=== PATIENT | female | born 1995 | race Caucasian/White ===

== ENCOUNTER → 2018-09-18 | Outpatient (CLI) | payer BC ==
[2018-09-18 16:19] LABS: Basophils % (A) 1 %; Eosinophils # (A) 0.4 k/uL (0-0.7); Eosinophils % (A) 6 %; HCT 46.9 % (34.0-46.0); HGB 15.7 gm/dL (11.4-16.0); Lymphocytes % (A) 25 %; MCH 29.7 pg (25.0-35.0); MCHC 33.6 g/dL (31.0-37.0); MCV 88.5 fL (80.0-100.0); Mean Platelet Volume 6.7; Monocytes # (A) 0.4 k/uL (0-1.0); Monocytes % (A) 5 %; Neutrophils # (A) 4.9 k/uL (1.3-7.7); Neutrophils % (A) 61 %; Platelet Count 357 k/uL (150-450); RDW 12.7 % (11.5-15.5); WBC 7.9 k/uL (3.8-10.6)
[2018-09-18 23:06] LABS: Albumin 4.9 g/dL (3.80-4.90); Albumin/Globulin Ratio 1.96 (1.60-3.17); Anion Gap 8.1 mmol/L (4.00-12.00); Calcium 9.8 mg/dL (8.7-10.3); Carbon Dioxide 24.9 mmol/L (21.6-31.8); Globulin 2.5 g/dL (1.6-3.3); Potassium 3.9 mmol/L (3.5-5.5); Total Bilirubin 0.4 mg/dL (0.3-1.2); Total Protein 7.4 g/dL (6.2-8.2)
[2018-09-18 23:12] LABS: T4, Free (Free Thyroxine) 1.2 ng/dL (0.80-1.80)
== END | disposition home or self-care (01) ==
LOC: LABWHC1 15:56
PROVIDERS: ATTEND Family Medicine
DX: F33.1 Major depressive disorder, recurrent, moderate (principal); F98.8 Other specified behavioral and emotional disorders with onset usually occurring in childhood and adolescence
CPT/HCPCS: 36415; 80053; 84439; 84443; 85025

== ENCOUNTER → 2022-07-21 | Outpatient (CLI) | payer OTHER ==
[2022-07-21 18:56] LABS: Basophils # (A) 0.07 X 10*3/uL (0.00-0.10); Basophils % (A) 0.7 %; Eosinophils # (A) 0.43 X 10*3/uL (0.04-0.35); Eosinophils % (A) 4.6 %; HCT 41.7 % (37.2-46.3); HGB 13.9 g/dL (12.0-15.0); Immature Grans, Automated 0.2 %; Lymphocytes # (A) 2.07 X 10*3/uL (0.90-5.00); Lymphocytes % (A) 22.1 %; MCHC 33.3 g/dL (32.0-37.0); MCV 87.1 fL (80.0-97.0); Mean Platelet Volume 10.2 fL (9.5-12.2); Monocytes # (A) 0.57 X 10*3/uL (0.20-1.00); Monocytes % (A) 6.1 %; NRBC Per 100 WBC 0 /100 WBCS (0.0-0.0); Neutrophils # (A) 6.19 X 10*3/uL (1.80-7.70); Neutrophils % (A) 66.3 %; Platelet Count 407 X 10*3/uL (140-440); RBC 4.79 X 10*6/uL (4.10-5.20); RDW 13.4 % (11.5-14.5); WBC 9.35 X 10*3/uL (4.50-10.00)
[2022-07-21 19:12] LABS: ALT 19 U/L (8-44); AST 20 U/L (13-35); African American GFR (CKD) 145.7 (60.0-200.0); Albumin 4.5 g/dL (3.8-4.9); Albumin/Globulin Ratio 2.14 (1.60-3.17); Alkaline Phosphatase 68 U/L (41-126); BUN/Creat Ratio 14.36 Ratio (12.00-20.00); Blood Urea Nitrogen 8.8 mg/dL (9.0-27.0); Calcium 9.2 mg/dL (8.7-10.3); Carbon Dioxide 23.3 mmol/L (20.0-27.5); Chloride 106 mmol/L (96-109); Chol/HDL Ratio 2.54 Ratio; Globulin 2.1 g/dL (1.6-3.3); Glucose 86 mg/dL (70-110); LDL Cholesterol,Calculated 79.5 mg/dL (0.0-131.0); Non-African American GFR(CKD) 125.7 (60.0-200.0); Potassium 4.2 mmol/L (3.5-5.5); Sodium 141 mmol/L (135-145); Total Bilirubin <0.15 mg/dL (0.30-1.20); Total Protein 6.5 g/dL (6.2-8.2); VLDL Calculation 10.78 mg/dL (5.00-40.00)
== END | disposition home or self-care (01) ==
LOC: LABWHC1 11:29
PROVIDERS: ATTEND Family Medicine
DX: Z00.00 Encounter for general adult medical examination without abnormal findings (principal); Z13.220 Encounter for screening for lipoid disorders; Z13.29 Encounter for screening for other suspected endocrine disorder; Z11.59 Encounter for screening for other viral diseases; F98.8 Other specified behavioral and emotional disorders with onset usually occurring in childhood and adolescence; F32.0 Major depressive disorder, single episode, mild; Z79.899 Other long term (current) drug therapy
CPT/HCPCS: 36415; 80053; 80061; 84443; 85025; 86803

== ENCOUNTER 2023-01-17 01:49 | Emergency (ER) | payer OTHER ==
[2023-01-17 02:39] LABS: Appearance,Urine Cloudy (Clear); Bilirubin,Urine Negative (Negative); Blood,Urine Large (Negative); Budding Yeast,Urine Many /hpf; Color,Urine Yellow; Glucose,Urine (UA) Negative (Negative); Ketones,Urine 1+ (Negative); Leukocyte Esterase,Urine Trace (Negative); Mucus,Urine Few /hpf; Nitrite,Urine Negative (Negative); PH, Urine 7.5 (5.0-8.0); Protein,Urine 1+ (Negative); RBC,Urine >182 /hpf (0-5); Specific Gravity,Urine 1.021 (1.001-1.035); Squamous Epithelial Cell,Urine 4 /hpf (0-4); Urobilinogen,Urine <2.0 mg/dL (<2.0); WBC,Urine 27 /hpf (0-5)
--- NOTE | 2023-01-17 02:41 | ED ---
Female Urogenital HPI <Leonid Garber - Last Filed: 01/17/23 06:14> - General Source: patient Mode of arrival: ambulatory Limitations: no limitations <Remigio Smalls - Last Filed: 01/19/23 03:38> - General Chief complaint: Urogenital Stated complaint: KIDNEY PAIN Time Seen by Provider: 01/17/23 02:12 - History of Present Illness Initial comments: Patient is a 27-year-old female presenting with chief complaint of dysuria. Symptoms started yesterday. Patient is now developing right-sided flank pain. Patient is currently on her menstrual cycle. No fever, chills, nausea, vomiting, vaginal discharge, hematuria. (Remigio Smalls) - Related Data Home Medications Medication Instructions Recorded Confirmed Dextroamphetamine/Amphetamine 1 cap PO DAILY 02/29/16 04/01/16 [Dextroamp-Amphet ER 30 mg Cap] Etonogestrel [Nexplanon ( 68 mg SQ [id number] 02/29/16 04/01/16 control implant)] Norethindrone Acetate 10 mg PO DAILY 02/29/16 04/01/16 Previous Rx's Medication Instructions Recorded Ketorolac [Toradol] 10 mg PO TID #30 tab 01/17/23 Ondansetron Odt [Zofran Odt] 4 mg PO Q8HR PRN #20 tab 01/17/23 Tamsulosin [Flomax] 0.4 mg PO DAILY #30 cap 01/17/23 Allergies Allergy/AdvReac Type Severity Reaction Status Date / Time No Known Allergies Allergy Verified 01/17/23 02:03 Review of Systems ROS Other: All systems not noted in ROS Statement are negative. <Leonid Garber - Last Filed: 01/17/23 06:14> ROS Other: All systems not noted in ROS Statement are negative. <Remigio Smalls - Last Filed: 01/19/23 03:38> ROS Statement: Those systems with pertinent positive or pertinent negative responses have been documented in the HPI. Past Medical History Additional Past Medical History / Comment(s): PCOS, major depression, recurrent, borderline personality disorder History of Any Multi-Drug Resistant Organisms: None Reported Past Surgical History: Ear Surgery, Tonsillectomy Past Psychological History: ADD/ADHD, Anxiety, Depression Smoking Status: Never smoker Past Alcohol Use History: Occasional Past Drug Use History: None Reported <Remigio Smalls - Last Filed: 01/19/23 03:38> General Exam Limitations: no limitations General appearance: alert, in no apparent distress Head exam: Present: atraumatic, normocephalic, normal inspection Eye exam: Present: normal appearance, EOMI. Absent: scleral icterus, periorbital swelling Neck exam: Present: normal inspection, full ROM Respiratory exam: Present: normal lung sounds bilaterally. Absent: respiratory distress, wheezes, rales, rhonchi, stridor Cardiovascular Exam: Present: regular rate, normal rhythm, normal heart sounds. Absent: systolic murmur, diastolic murmur, rubs, gallop, clicks GI/Abdominal exam: Present: soft, tenderness. Absent: distended, guarding, rebound, rigid Back exam: Present: CVA tenderness (R) Neurological exam: Present: alert, oriented X3, CN II-XII intact Psychiatric exam: Present: normal affect, normal mood Skin exam: Present: warm, dry, intact, normal color. Absent: rash <SlimDanyeljose - Last Filed: 01/19/23 03:38> Course Vital Signs 01/17/23 01/17/23 01/17/23 02:00 04:47 06:27 Temperature 97.8 F 98.5 F Pulse Rate 85 82 76 Respiratory 18 16 16 Rate Blood Pressure 137/95 119/67 O2 Sat by Pulse 100 99 98 Oximetry Medical Decision Making <Remigio Smalls - Last Filed: 01/19/23 03:38> - Medical Decision Making Was pt. sent in by a medical professional or institution (, PA, BOX COVERING MACHINE OPERATOR, urgent care, hospital, or fci...) When possible be specific @ -No Did you speak to anyone other than the patient for history (EMS, parent, family, police, friend...)? What history was obtained from this source @ -No Did you review nursing and triage notes (agree or disagree)? Why? @ -I reviewed and agree with nursing and triage notes Were old charts reviewed (outside hosp., previous admission, EMS record, old EKG, old radiological studies, urgent care reports/EKG's, fci records)? Report findings @ -No old charts were reviewed Differential Diagnosis (chest pain, altered mental status, abdominal pain women, abdominal pain men, vaginal bleeding, weakness, fever, dyspnea, syncope, headache, dizziness, GI bleed, back pain, seizure, CVA, palpatations, mental health, musculoskeletal)? @ - [facility] Differential Back Pain: Strain, zoster, cauda equina syndrome, epidural abscess, vertebral osteomyelitis, discitis, fracture, subluxation, disc herniation, DJD, spinal stenosis, dissection, AAA, pancreatitis, peptic ulcer disease, pyelonephritis, kidney stone this is not meant to be an all-inclusive list. EKG interpreted by me (3pts min.). @ -As above X-rays interpreted by me (1pt min.). @ -None done CT interpreted by me (1pt min.). @ -CT shows right-sided obstructive uropathy due to a 3 mm calculus at the right UVJ U/S interpreted by me (1pt. min.). @ -None done What testing was considered but not performed or refused? (CT, X-rays, U/S, labs)? Why? @ -None What meds were considered but not given or refused? Why? @ -None Did you discuss the management of the patient with other professionals (professionals i.e. , PA, BOX COVERING MACHINE OPERATOR, lab, RT, psych nurse, social science teacher, can technician, teacher, chief lifestyle officer, case preparer and liner)? Give summary @ -No Was smoking cessation discussed for >3mins.? @ -No Was critical care preformed (if so, how long)? @ -No Were there social determinants of health that impacted care today? How? (Homelessness, low income, unemployed, alcoholism, drug addiction, transport ation, low edu. Level, literacy, decrease access to med. care, prison, rehab)? @ -No Was there de-escalation of care discussed even if they declined (Discuss DNR or withdrawal of care, Hospice)? DNR status @ -No What co-morbidities impacted this encounter? (DM, HTN, Smoking, COPD, CAD, Cancer, CVA, ARF, Chemo, Hep., AIDS, mental health diagnosis, sleep apnea, morbid obesity)? @ -None Was patient admitted / discharged? Hospital course, mention meds given and route, prescriptions, significant lab abnormalities, going to OR and other pertinent info. @ -27-year-old female presenting with chief complaint of dysuria and flank pain. Urine shows large blood and trace leukocytes. Patient is on her menstrual cycle at this time. CT shows a 3 mm kidney stone. Patient is provided with prescription for Flomax, Toradol, and Zofran. Follow-up with PCP. Report back to ER with any new or worsening symptoms. Discussed return parameters and answered all questions. Patient conveyed verbal understanding and agreed to the plan. I discussed this case in detail with my attending Dr. Garber Undiagnosed new problem with uncertain prognosis? @ -No Drug Therapy requiring intensive monitoring for toxicity (Heparin, Nitro, Insulin, Cardizem)? @ -No Were any procedures done? @ -No Diagnosis/symptom? @ -Kidney stone Acute, or Chronic, or Acute on Chronic? @ -Acute Uncomplicated (without systemic symptoms) or Complicated (systemic symptoms)? @ -Uncomplicated Side effects of treatment? @ -No Exacerbation, Progression, or Severe Exacerbation? @ -No Poses a threat to life or bodily function? How? (Chest pain, [place], [place], pneumonia, PE, COPD, DKA, ARF, appy, cholecystitis, CVA, Diverticulitis, Homicidal, Suicidal, threat to staff... and all critical care pts) @ -No (Remigio Smalls) - Lab Data Lab Results 01/17/23 01/17/23 Range/Units 02:11 02:11 Urine Color Yellow Urine Appearance Cloudy H (Clear) Urine pH 7.5 (5.0-8.0) Ur Specific [place] 1.021 (1.001-1.035) Urine Protein 1+ H (Negative) Urine Glucose (UA) Negative (Negative) Urine Ketones 1+ H (Negative) Urine Blood Large H (Negative) Urine Nitrite Negative (Negative) Urine Bilirubin Negative (Negative) Urine Urobilinogen <2.0 (<2.0) mg/dL Ur Leukocyte Esterase Trace H (Negative) Urine RBC >182 H (0-5) /hpf Urine WBC 27 H (0-5) /hpf Ur Squamous Epith Cells 4 (0-4) /hpf Urine Mucus Few H (None) /hpf Urine Yeast (Budding) Many H (None) /hpf Urine HCG, Qual Not Detected (Not Detectd) Disposition Is patient prescribed a controlled substance at d/c from ED?: No Time of Disposition: 06:00 <Leonid Garber - Last Filed: 01/17/23 06:14> Is patient prescribed a controlled substance at d/c from ED?: No <Remigio Smalls - Last Filed: 01/19/23 03:38> Clinical Impression: Kidney stone Disposition: HOME SELF-CARE Condition: Stable Additional Instructions: Follow-up with PCP. Report back to ER with new or worsening symptoms. Take m edication as prescribed. Prescriptions: Tamsulosin [Flomax] 0.4 mg PO DAILY #30 cap Ketorolac [Toradol] 10 mg PO TID #30 tab Ondansetron Odt [Zofran Odt] 4 mg PO Q8HR PRN #20 tab PRN Reason: Nausea Referrals: Heath Downey MD [Primary Care Provider] - 1-2 days
[2023-01-17] MEDS ORDERED: KETOROLAC 15 MG/ML 1 ML VIAL IM STA (04:29)
[2023-01-17] MEDS ORDERED: ONDANSETRON ODT 4 MG TAB PO STA (04:29)
[2023-01-17 04:48] VITALS: RESP 16
--- NOTE | 2023-01-17 06:11 | CT ---
EXAM: CT Abdomen and Pelvis Without Intravenous Contrast CLINICAL HISTORY: Right flank pain. TECHNIQUE: Axial computed tomography images of the abdomen and pelvis without intravenous contrast. CTDI is 9.5 mGy and DLP is 530.9 mGy-cm. This CT exam was performed using one or more of the following dose reduction techniques: automated exposure control, adjustment of the mA and/or kV according to patient size, and/or use of iterative reconstruction technique. COMPARISON: No relevant prior studies available. FINDINGS: Lung bases: Unremarkable. No mass. No consolidation. ABDOMEN: Liver: Unremarkable. Gallbladder and bile ducts: Unremarkable. No calcified stones. No ductal dilation. Pancreas: Unremarkable. No ductal dilation. Spleen: Unremarkable. No splenomegaly. Adrenals: Unremarkable. No mass. Kidneys and ureters: There is an obstructing 3 mm calculus at the right UVJ, with mild right-sided hydroureteronephrosis. Findings are consistent with a right-sided obstructive uropathy. Additional punctate nonobstructing calculi seen within the right renal collecting system. There is no evidence of left-sided nephrolithiasis or obstructive uropathy. Stomach and bowel: No bowel obstruction. No bowel wall thickening. Well-formed stool seen within the colon. PELVIS: Appendix: No findings to suggest acute appendicitis. Bladder: Unremarkable. No stones. Reproductive: Unremarkable as visualized. ABDOMEN and PELVIS: Intraperitoneal space: Unremarkable. No free air. No significant fluid collection. Bones/joints: No acute fracture. No dislocation. Soft tissues: Unremarkable. Vasculature: Unremarkable. No abdominal aortic aneurysm. Lymph nodes: Unremarkable. No enlarged lymph nodes. IMPRESSION: Right-sided obstructive uropathy due to a 3 mm calculus at the right UVJ.
[2023-01-17 06:28] VITALS: BP 119/67; PULSE 76; TEMP 98.5
== END 2023-01-17 06:28 | disposition home or self-care (01) ==
LOC: EC 01:49
DX: N20.0 Calculus of kidney (principal); F90.9 Attention-deficit hyperactivity disorder, unspecified type; F41.9 Anxiety disorder, unspecified; F32.A Depression, unspecified; Z79.899 Other long term (current) drug therapy
CPT/HCPCS: 81001; 81025; 87086; 74176; 99284; 96372; J1885

== ENCOUNTER 2023-07-15 23:50 | Emergency (ER) | payer OTHER ==
[2023-07-16 00:34] VITALS: BP 130/79; PULSE 93; RESP 18; TEMP 98.7
[2023-07-16 00:39] LABS: Basophils # (A) 0.1 k/uL (0-0.2); Basophils % (A) 1 %; Eosinophils # (A) 0.3 k/uL (0-0.7); Eosinophils % (A) 4 %; HCT 45.6 % (34.0-46.0); HGB 15.5 gm/dL (11.4-16.0); Lymphocytes # (A) 2.2 k/uL (1.0-4.8); Lymphocytes % (A) 26 %; MCHC 34.1 g/dL (31.0-37.0); MCV 87.9 fL (80.0-100.0); Mean Platelet Volume 7.1; Monocytes # (A) 0.4 k/uL (0-1.0); Monocytes % (A) 5 %; Neutrophils # (A) 5.4 k/uL (1.3-7.7); Neutrophils % (A) 63 %; Platelet Count 378 k/uL (150-450); RBC 5.18 m/uL (3.80-5.40); RDW 12.1 % (11.5-15.5); WBC 8.6 k/uL (3.8-10.6)
[2023-07-16 00:42] LABS: Appearance,Urine Clear (Clear); Color,Urine Yellow
[2023-07-16 00:43] LABS: Bilirubin,Urine Negative (Negative); Blood,Urine Negative (Negative); Glucose,Urine (UA) Negative (Negative); Ketones,Urine Negative (Negative); Leukocyte Esterase,Urine Negative (Negative); Nitrite,Urine Negative (Negative); Protein,Urine Negative (Negative); Specific Gravity,Urine 1.005 (1.001-1.035); Urobilinogen,Urine <2.0 mg/dL (<2.0)
[2023-07-16 00:55] LABS: ALT 31 U/L (4-34); AST 30 U/L (14-36); African American GFR (CKD) >90 (>60 ml/min/1.73 sqM); Albumin 5.1 g/dL (3.5-5.0); Alkaline Phosphatase 78 U/L (38-126); Anion Gap 12 mmol/L; Blood Urea Nitrogen 11 mg/dL (7-17); Calcium 10.3 mg/dL (8.4-10.2); Carbon Dioxide 25 mmol/L (22-30); Chloride 103 mmol/L (98-107); Glucose 92 mg/dL (74-99); Magnesium 2.2 mg/dL (1.6-2.3); Non-African American GFR(CKD) >90 (>60 ml/min/1.73 sqM); Potassium 4.1 mmol/L (3.5-5.1); Sodium 140 mmol/L (137-145); Total Bilirubin 0.5 mg/dL (0.2-1.3); Total Protein 8.4 g/dL (6.3-8.2)
[2023-07-16 01:01] LABS: Partial Thromboplastin Time 26.5 sec (22.0-30.0); Prothrombin Time 11.1 sec (10.0-12.5)
--- NOTE | 2023-07-16 02:20 | XR ---
EXAM: XR Chest, 2 Views CLINICAL HISTORY: ITS.REASON XR Reason: Chest Pain TECHNIQUE: Frontal and lateral views of the chest. COMPARISON: No relevant prior studies available. FINDINGS: Lungs: No consolidation or mass. Pleural space: No effusion. Heart: No cardiomegaly. Bones/joints: No acute findings. IMPRESSION: No acute cardiopulmonary process.
--- NOTE | 2023-07-16 02:58 | ED ---
Chest Pain HPI - General Chief Complaint: Chest Pain Stated Complaint: chest pain and increased heart rate Time Seen by Provider: 07/16/23 02:02 Source: patient Mode of arrival: ambulatory Limitations: no limitations - History of Present Illness Initial Comments: 28 year old female presenting to the ED with a chief complaint of palpitations. Patient states for the last 3-4 days has noticed intermittent palpitations especially with activity. States over the past 2 days when she has these palpitations is now also experiencing some sharp left-sided chest pain. She is on control. Denies shortness of breath. No other complaints. - Related Data Home Medications Medication Instructions Recorded Confirmed Dextroamphetamine/Amphetamine 1 cap PO DAILY 02/29/16 04/01/16 [Dextroamp-Amphet ER 30 mg Cap] Etonogestrel [Nexplanon ( 68 mg SQ [id number] 02/29/16 04/01/16 control implant)] Norethindrone Acetate 10 mg PO DAILY 02/29/16 04/01/16 Previous Rx's Medication Instructions Recorded Ketorolac [Toradol] 10 mg PO TID #30 tab 01/17/23 Ondansetron Odt [Zofran Odt] 4 mg PO Q8HR PRN #20 tab 01/17/23 Tamsulosin [Flomax] 0.4 mg PO DAILY #30 cap 01/17/23 Allergies Allergy/AdvReac Type Severity Reaction Status Date / Time No Known Allergies Allergy Verified 07/16/23 00:10 Review of Systems ROS Statement: Those systems with pertinent positive or pertinent negative responses have been documented in the HPI. ROS Other: All systems not noted in ROS Statement are negative. Past Medical History Additional Past Medical History / Comment(s): PCOS, major depression, recurrent, borderline personality disorder, kidney stone History of Any Multi-Drug Resistant Organisms: None Reported Past Surgical History: Ear Surgery, Tonsillectomy Past Psychological History: ADD/ADHD, Anxiety, Depression Smoking Status: Never smoker Past Alcohol Use History: Occasional Past Drug Use History: Marijuana General Exam Limitations: no limitations General appearance: alert, in no apparent distress Neck exam: Present: normal inspection Respiratory exam: Present: normal lung sounds bilaterally Cardiovascular Exam: Present: regular rate, normal rhythm GI/Abdominal exam: Present: soft Extremities exam: Present: normal inspection Neurological exam: Present: alert, oriented X3 Skin exam: Present: warm, dry Course Vital Signs 12/11/23 00:07 Temperature 98.7 F Pulse Rate 93 Respiratory 18 Rate Blood Pressure 130/79 O2 Sat by Pulse 99 Oximetry Chest Pain MDM - MDM Was pt. sent in by a medical professional or institution (MATIAS Darling, JUICE TESTER, urgent care, hospital, or residential...) When possible be specific @ -No Did you speak to anyone other than the patient for history (EMS, parent, family, police, friend...)? What history was obtained from this source @ -No Did you review nursing and triage notes (agree or disagree)? Why? @ -I reviewed and agree with nursing and triage notes Were old charts reviewed (outside hosp., previous admission, EMS record, old EKG, old radiological studies, urgent care reports/EKG's, residential records)? Report findings @ -No old charts were reviewed Differential Diagnosis (chest pain, altered mental status, abdominal pain women, abdominal pain men, vaginal bleeding, weakness, fever, dyspnea, syncope, headache, dizziness, GI bleed, back pain, seizure, CVA, palpatations, mental health, musculoskeletal)? @ -Differential Chest Pain: Stable Angina, Unstable Angina, STEMI, NSTEMI Aortic Dissection, Pneumothorax, Musculoskeletal, Esophageal Spasm GERD, Cholecystitis, Pancreatitis, Zoster, this is not meant to be an all-inclusive list. EKG interpreted by me (3pts min.). @ -EKG shows a sinus tachycardia at 114 bpm with AR interval of 108 ms. QRS 84, QT/QTc 336/403. Nonspecific diffuse T-wave changes. X-rays interpreted by me (1pt min.). @ -Chest X-ray interpreted by me showing no acute finding. CT interpreted by me (1pt min.). @ -None done U/S interpreted by me (1pt. min.). @ -None done What testing was considered but not performed or refused? (CT, X-rays, U/S, labs)? Why? @ -None What meds were considered but not given or refused? Why? @ -None Did you discuss the management of the patient with other professionals (teodoro leigh i.e. MATIAS Darling, JUICE TESTER, lab, RT, psych nurse, social work case manager, county extension agent, teacher, inshore undersea warfare officer, spring encaser)? Give summary @ -No Was smoking cessation discussed for >3mins.? @ -No Was critical care preformed (if so, how long)? @ -No Were there social determinants of health that impacted care today? How? (Homelessness, low income, unemployed, alcoholism, drug addiction, transportation, low edu. Level, literacy, decrease access to med. care, senior care, rehab)? @ -No Was there de-escalation of care discussed even if they declined (Discuss DNR or withdrawal of care, Hospice)? DNR status @ -No What co-morbidities impacted this encounter? (DM, HTN, Smoking, COPD, CAD, Cancer, CVA, ARF, Chemo, Hep., AIDS, mental health diagnosis, sleep apnea, morbid obesity)? @ -None Was patient admitted / discharged? Hospital course, mention meds given and route, prescriptions, significant lab abnormalities, going to OR and other pertinent info. @ -AMA 28 year old female presenting to the ED with a chief complaint of palpitations and chest pain. Laboratory studies reviewed. Labs including CBC, CMP, initial troponin, d-dimer unremarkable. Second troponin drawn. 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 Patient stated that she will follow-up with her primary care provider, Dr. Downey, and will present to the ED with new or worsening symptoms. Undiagnosed new problem with uncertain prognosis? @ -No Drug Therapy requiring intensive monitoring for toxicity (Heparin, Nitro, Insulin, Cardizem)? @ -No Were any procedures done? @ -No Diagnosis/symptom? @ -Chest pain Acute, or Chronic, or Acute on Chronic? @ -Acute Uncomplicated (without systemic symptoms) or Complicated (systemic symptoms)? @ -Uncomplicated Side effects of treatment? @ -No Exacerbation, Progression, or Severe Exacerbation? @ -No Poses a threat to life or bodily function? How? (Chest pain, [place], [place], pneumonia, PE, COPD, DKA, ARF, appy, cholecystitis, CVA, Diverticulitis, Homicidal, Suicidal, threat to staff... and all critical care pts) @ -Possibly, chest pain Disposition Clinical Impression: Chest pain Disposition: LEFT AGAINST MEDICAL ADVICE Referrals: Heath Downey MD [Primary Care Provider] - 1-2 days
== END 2023-07-16 02:40 | disposition left against medical advice (07) ==
LOC: EC 23:50
DX: R07.89 Other chest pain (principal); R00.0 Tachycardia, unspecified; F41.9 Anxiety disorder, unspecified; F32.A Depression, unspecified; F90.9 Attention-deficit hyperactivity disorder, unspecified type; F12.90 Cannabis use, unspecified, uncomplicated; Z79.899 Other long term (current) drug therapy; Z53.29 Procedure and treatment not carried out because of patient's decision for other reasons
CPT/HCPCS: 36415; 71046; 80053; 81003; 81025; 83735; 84484; 85025; 85379; 85610; 85730; 93005; 99285

== ENCOUNTER → 2025-01-27 | Outpatient (CLI) | payer MEDICAID ==
--- NOTE | 2025-01-27 16:08 | XR ---
EXAMINATION TYPE: XR knee complete LT DATE OF EXAM: 01/27/2025 3:55 PM COMPARISON: None CLINICAL INDICATION: Female, 29 years old with history of G89.29 OTHER CHRONIC PAIN M25.562 PAIN IN L EFT KNEE; PH[facility], pain TECHNIQUE: 3 views FINDINGS: No acute fracture, subluxation, or dislocation. Patella remains appropriately situated mic g the trochlear groove. Extensor mechanism is intact. No knee joint effusion. IMPRESSION: No acute osseous abnormalities seen. [facility], , 01/27/2025 4:05 PM
== END | disposition home or self-care (01) ==
LOC: RADXRMAIN 15:29
PROVIDERS: ATTEND Family Medicine
DX: G89.29 Other chronic pain (principal); M25.562 Pain in left knee